=== PATIENT | male | born 1955 | race Caucasian/White ===

== ENCOUNTER → 2019-04-20 | Outpatient (REF) | payer BC | LOC: M LAB LCGH 11:53 | PROVIDERS: ATTEND Nurse Practitioner Family | DX: C44.629 Squamous cell carcinoma of skin of left upper limb, including shoulder (principal) ==

== ENCOUNTER → 2019-05-28 | Outpatient (REF) | payer BC | LOC: M LAB LCGH 13:58 | PROVIDERS: ATTEND Family Medicine | DX: C44.602 Unspecified malignant neoplasm of skin of right upper limb, including shoulder (principal) ==

== ENCOUNTER → 2019-11-03 | Outpatient (REF) | payer BC | LOC: M LAB LCGH 17:29 | PROVIDERS: ATTEND Family Medicine | DX: C44.622 Squamous cell carcinoma of skin of right upper limb, including shoulder (principal) ==